=== PATIENT | male | born 1980 | race Two or more races ===

== ENCOUNTER 2018-06-26 10:13 | Emergency (ER) | payer OTHER ==
[~2018-06-26] VITALS: Ht 175.3 cm; Wt 93.0 kg
[2018-06-26 10:43] VITALS: BP 154/91
[2018-06-26] MEDS: ACETAMINOPHEN 500 MG TAB PO ONE (11:30)
[2018-06-26] MEDS: MORPHINE SULFATE 10 MG/5 ML ORAL SOLN PO ONE (12:32)
== END 2018-06-26 12:10 | disposition home or self-care (01) ==
LOC: ER 10:13
DX: S90.922A Unspecified superficial injury of left foot, initial encounter (principal); W45.8XXA Other foreign body or object entering through skin, initial encounter; Y93.89 Activity, other specified; Y92.89 Other specified places as the place of occurrence of the external cause; Y99.8 Other external cause status

== ENCOUNTER 2021-01-24 09:53 | Emergency (ER) | payer OTHER, MEDICAID ==
[~2021-01-24] VITALS: Ht 175.3 cm; Wt 95.3 kg
[2021-01-24 11:29] VITALS: BP 139/90
[2021-01-24] MEDS ORDERED: ACETAMINOPHEN/CODEINE#3 (300/30mg) TAB PO ONE (12:00)
== END 2021-01-24 12:38 | disposition home or self-care (01) ==
LOC: ER 09:53
DX: S82.61XA Displaced fracture of lateral malleolus of right fibula, initial encounter for closed fracture (principal); X50.1XXA Overexertion from prolonged static or awkward postures, initial encounter; Y93.66 Activity, soccer; Y92.89 Other specified places as the place of occurrence of the external cause; Y99.8 Other external cause status
CPT/HCPCS: 29515; 73610